=== PATIENT | male | born 1995 | race Caucasian/White ===

== ENCOUNTER 2021-11-28 12:44 | Emergency (ER) | payer OTHER, SELFPAY ==
[2021-11-28 13:12] VITALS: BP 129/87; PULSE 60; RESP 16; TEMP 35.6; O2SAT 100; BMI 21.5
[2021-11-28] MEDS: Ondansetron ODT 4 MG TAB.RAPDIS TRANSLINGU (13:18)
== END 2021-11-28 17:53 | disposition left against medical advice (07) ==
PROVIDERS: Emergency Provider Emergency Medicine
DX: R11.2 Nausea with vomiting, unspecified (principal); R10.9 Unspecified abdominal pain; F17.200 Nicotine dependence, unspecified, uncomplicated; F12.90 Cannabis use, unspecified, uncomplicated
CPT/HCPCS: 99282; 99283

== ENCOUNTER 2021-12-02 09:56 | Emergency (ER) | payer OTHER, SELFPAY ==
[2021-12-02 10:06] VITALS: BP 144/93; PULSE 64; RESP 18; TEMP 36.9; O2SAT 100; BMI 24.3
--- NOTE | 2021-12-02 10:32 | ED.NAVMDI ---
HPI - Nausea/Vomiting/Diarrhea General Chief complaint: Nausea/Vomiting/Diarrhea Stated complaint: vomiting blood Time Seen by Provider: 12/02/21 10:25 Source: patient Mode of arrival: ambulatory Limitations: no limitations History of Present Illness MD elicited complaint: nausea, vomiting and abdominal pain Pertinent past history: other (PUD) Onset (ago): day(s) (6) Description of vomiting: food contents, watery and coffee grounds Associated nausea: Yes Associated abdominal pain: Yes Location of pain: epigastric Pain consistency: constant Severity: severe Quality: stabbing Exacerbating factors: eating Relieving factors: none Context: marijuana use and other (drank ETOH - fireball prior to this happening next day started with vomiting, yesterday it became like coffee grounds) Associated symptoms: loss of appetite, nausea/vomiting and weakness Treatment prior to arrival: other (not on PPI) Related Data Previous Rx's Medication Instructions Recorded metoclopramide HCl 10 mg tablet 10 mg PO Q6H PRN #20 tab 12/02/21 (Reglan) omeprazole 20 mg capsule,delayed 20 mg PO BID #42 cap 12/02/21 release ondansetron 4 mg disintegrating 4 mg PO Q8H PRN #20 tab 12/02/21 tablet potassium chloride 20 mEq oral 20 meq PO DAILY 4 Days #4 ea 12/02/21 packet Allergies Allergy/AdvReac Type Severity Reaction Status Date / Time SEAFOOD Allergy Severe HIVES Uncoded 06/21/20 17:05 Review of Systems Review of Systems: Constitutional : No Weight loss, No Fever, No Chills ENT/Mouth : No sore throat, No Rhinorrhea Eyes: No Swelling, No Redness Cardiovascular : No Chest Pain, No SOB, NoEdema Respiratory : No Cough, No Sputum, No Wheezing Gastrointestinal : Positive Nausea, Positive Vomiting, positive Diarrhea, positive abdominal Pain, No Hematochezia, No Melena, pos hematemesis Genitourinary : No Dysuria, No Urinary Frequency, No Hematuria, No Urgency Musculoskeletal : No joint pain, No Myalgias, No Joint Swelling Skin : No Skin Lesions, No rash Neuro : pos Weakness, No Numbness, No Dizziness, No Headache Psych : No Anxiety/Panic, No Depression Heme/Lymph: No Bruising, No Lymphadenopathy Endocrine : No Polyuria, No Polydipsia All other systems reviewed and are negative. Gastrointestinal: Gastrointestinal: Reports nausea PMFSH Past Medical History Attestation statement: The following information was validated with the patient. Medical History Depression Stomach ulcer Social History Social History (Updated 12/02/21 @ 10:55 by Kelli Manriquez DO) Alcohol intake: current Patient Tobacco Use Status: Current everyday Tobacco user Substance Use Type: Marijuana Advance Directives: No Advance Directives Information Provided: No Physical Exam Vital Signs: Vital Signs: Last Vital Signs Temp 98.5 F 12/02/21 10:06 Pulse 52 12/02/21 10:55 Resp 14 12/02/21 10:55 BP 129/72 12/02/21 10:55 Pulse Ox 99 12/02/21 10:55 BMI result Body Mass Index 24.3 Appearance: Alert. Oriented X3. Mild acute distress. Active vomiting Eyes: Pupils equal, round and reactive to light. ENT: Pharynx normal. Neck: Normal inspection. Neck supple. CVS: Normal heart rate and rhythm. Pulses normal. Respiratory: No respiratory distress. Breath sounds normal. Abdomen: Soft and mild ttp in epigastric region no rebound Skin: Skin warm and dry. Normal skin color. Normal skin turgor. Extremities: No lower extremity edema. No calf ttp Neuro: Oriented X 3. No motor deficit. No sensory deficit. Course Course Course Narrative: h/h stable able to tolerate PO feels much better stable for DC MDM - Nausea/Vomiting/Diarrhea MDM Narrative Medical decision making narrative: 26 yo male with hx of PUD not on medications drank last week and since then c/o upper abdominal pain and vomiting yesterday developed brown emesis denies NSAID use at this time will need labs, IVF x 2L, IV protonix, anti-emetics. no RUQ or RLQ pain no WBC count no peritoneal signs doubt perforation dispo per results and findings as well as PO challenge Lab Data Result diagrams: 12/02/21 10:40 12/02/21 10:40 Labs: Lab Results 12/02/21 12/02/21 Range/Units 10:40 10:40 WBC 6.9 (4.8-10.8) X10*3/uL RBC 4.83 (4.60-5.80) X10*6/uL Hgb 14.5 (14.0-18.0) g/dl Hct 41.1 L (42.0-52.0) % MCV 85.1 (80.0-98.0) fL MCH 30.0 (27.0-33.0) pg MCHC 35.3 (31.0-36.0) g/dl RDW 12.1 (11.0-16.0) % Plt Count 170 (160-400) X10*3/uL MPV 11.2 (9.4-12.4) fL Immature Gran % (Auto) 0.3 (0.0-0.4) % Neut % (Auto) 83.4 H (45-73) % Lymph % (Auto) 10.8 L (20-40) % [place] % (Auto) 5.1 (2-11) % Eos % (Auto) 0.1 (0-4) % Baso % (Auto) 0.3 (0-2) % Lymph # (Auto) 0.7 L (1.2-4.9) X10*3/uL [place] # (Auto) 0.4 (0.1-1.2) X10*3/uL Eos # (Auto) 0.0 (0.0-0.4) X10*3/uL Baso # (Auto) 0.0 (0.0-0.2) X10*3/uL Abs Immat Gran (auto) 0.02 (0.00-0.03) X10*3/uL Absolute Neuts (auto) 5.7 (2.0-8.3) x10*3/uL Absolute Nucleated RBC 0.000 (0.0-0.012) X10*3/uL Nucleated RBC % (auto) 0.0 (0.0-0.2) /100WBC Sodium 138 (135-145) mmol/L Potassium 3.0 L (3.3-5.1) mmol/L Chloride 102 (96-108) mmol/L Carbon Dioxide 26 (22-29) mmol/L Anion Gap 13 (12-20) BUN 20 H (9-16) mg/dL Creatinine 1.18 (0.5-1.4) mg/dL Estim Creat Clear Calc 90.2 Estimated GFR > 60 Random Glucose 117 H (60-115) mg/dL Calcium 9.9 (8.4-10.2) mg/dL Magnesium 1.9 (1.6-2.6) mg/dL Total Bilirubin 1.0 (0.0-1.0) mg/dL Direct Bilirubin 0.4 (0.0-0.5) mg/dL AST 25 (5-37) U/L ALT 20 (0-40) U/L Alkaline Phosphatase 69 (39-117) U/L Total Protein 7.5 (6.5-8.0) g/dL Albumin 4.7 (3.5-5.0) g/dL Lipase 18 (8-78) U/L Critical Care Time Critical Care Time Critical Care Time: Yes Total Critical Care Time: 35 Attestation: 2L of IVF ordered, repletion of K with IV K, reassessment I attest to this time spent taking care of the patient Discharge Plan Discharge Clinical Impression: Acute hypokalemia Vomiting Qualifiers: Vomiting type: unspecified Nausea presence: with nausea Qualified Code(s): R11.2 - Nausea with vomiting, unspecified Gastritis Qualifiers: Gastritis type: unspecified gastritis Chronicity: acute Gastritis bleeding: with bleeding Qualified Code(s): K29.01 - Acute gastritis with bleeding Patient Disposition: Home, Self-Care Instructions: Gastritis (ED), Hypokalemia (ED), Acute Nausea and Vomiting (ED), Upper GI Series (DC) Additional Instructions: return to ED for any worsening symptoms or concerns NO MOTRIN, IBUPROFEN, ALEVE, NAPROSYN, TYLENOL IS OKAY TAKE ACID MEDICATION TWICE A DAY FOR 2 WEEKS THEN DAILY RETURN FOR ANY SYMPTOMS AVOID ALCOHOL FOR 2 WEEKS Prescriptions: New omeprazole 20 mg capsule,delayed release(DR/EC) 20 mg PO BID Qty: 42 1RF Rx Instructions: two weeks twice a day then daily afterwards ondansetron 4 mg tablet,disintegrating 4 mg PO Q8H PRN (Reason: nausea and vomiting) Qty: 20 0RF metoclopramide HCl [Reglan] 10 mg tablet 10 mg PO Q6H PRN (Reason: nausea and vomiting) Qty: 20 0RF potassium chloride 20 mEq packet 20 meq PO DAILY 4 Days Qty: 4 0RF Interventions: ED Discharge Assessment Last Done: 12/02/21 14:53 Discharge Date/Time: 12/02/21 14:53
[2021-12-02 10:43] LABS: MANUAL DIFF FLAG NO
[2021-12-02 10:46] LABS: Basophils Percent Auto 0.3 % (0-2); Eosinophils Percent Auto 0.1 % (0-4); Hematocrit 41.1 % (42.0-52.0); Hemoglobin 14.5 g/dl (14.0-18.0); Imm Gran Abs Auto 0.02 X10*3/uL (0.00-0.03); Imm Gran Pct Auto 0.3 % (0.0-0.4); Lymphocytes Absolute Auto 0.7 X10*3/uL (1.2-4.9); Lymphocytes Percent Auto 10.8 % (20-40); Mean Corpuscular HGB Conc 35.3 g/dl (31.0-36.0); Mean Corpuscular Volume 85.1 fL (80.0-98.0); Mean Platelet Volume 11.2 fL (9.4-12.4); Monocytes Absolute Auto 0.4 X10*3/uL (0.1-1.2); Monocytes Percent Auto 5.1 % (2-11); Neutrophils Absolute Auto 5.7 x10*3/uL (2.0-8.3); Neutrophils Percent Auto 83.4 % (45-73); Platelet Count 170 X10*3/uL (160-400); Red Blood Count 4.83 X10*6/uL (4.60-5.80); Red Cell Distribution Width 12.1 % (11.0-16.0); White Blood Count 6.9 X10*3/uL (4.8-10.8)
[2021-12-02] MEDS: 0.9 % Sodium Chloride 1,000 ML 999 ML IVCONT ×2 (10:53→11:00)
[2021-12-02] MEDS: Pantoprazole Sodium 40 MG/10 ML VIAL IVPUSH (10:54)
[2021-12-02] MEDS: Metoclopramide HCl 10 MG/2 ML VIAL IVPUSH (10:54)
[2021-12-02] MEDS: diphenhydrAMINE HCL 50 MG/ML VIAL 25 MG IVPUSH (10:54)
[2021-12-02] MEDS: LORazepam 2 MG/ML VIAL 1 MG IVPUSH (10:54)
[2021-12-02 10:55] VITALS: BP 129/72; PULSE 52; RESP 14; O2SAT 99
--- NOTE | 2021-12-02 11:00 | PC.NURSE ---
Pt received: Pt AOX4 and noted N/severe vomiting s/p using thc. NSR to sinus dodie noted and lungs clear. Pt abd soft and non-tender. IV established, medications admin, and vomiting decreased.
[2021-12-02 11:05] LABS: Alanine Aminotransferase 20 U/L (0-40); Albumin Level 4.7 g/dL (3.5-5.0); Alkaline Phosphatase 69 U/L (39-117); Anion Gap 13 (12-20); Aspartate Amino Transferase 25 U/L (5-37); Bilirubin Direct 0.4 mg/dL (0.0-0.5); Blood Urea Nitrogen 20 mg/dL (9-16); Calcium 9.9 mg/dL (8.4-10.2); Carbon Dioxide 26 mmol/L (22-29); Chloride 102 mmol/L (96-108); Creatinine Clr Calc Pharmacy 90.2; Estimated Glomerular Filt Rate > 60; Glucose Random 117 mg/dL (60-115); Lipase 18 U/L (8-78); Magnesium 1.9 mg/dL (1.6-2.6); Sodium 138 mmol/L (135-145); Total Protein 7.5 g/dL (6.5-8.0)
[2021-12-02] MEDS: Potassium Chloride/H20 10 MEQ/100 ML PIGGYBACK 100 MEQ IV ×2 (11:33→12:30)
== END 2021-12-02 14:53 | disposition home or self-care (01) ==
PROVIDERS: Emergency Provider Emergency Medicine
DX: K29.01 Acute gastritis with bleeding (principal); E87.6 Hypokalemia; R11.2 Nausea with vomiting, unspecified; F17.200 Nicotine dependence, unspecified, uncomplicated; F12.90 Cannabis use, unspecified, uncomplicated
CPT/HCPCS: 36415; 80048; 80076; 83690; 83735; 85025; 96361; 96365; 96366; 96375; 99283; 99291; J1200; J2060; J2765

== ENCOUNTER 2022-10-02 11:05 | Emergency (ER) | payer OTHER, SELFPAY ==
[2022-10-02 11:30] VITALS: BP 138/76; PULSE 58; RESP 18; TEMP 37.2; O2SAT 99; BMI 20.9
--- NOTE | 2022-10-02 11:30 | ED_ITS ---
HPI - General Adult General Chief complaint: General Medical Stated complaint: wants blood checked Time Seen by Provider: 10/02/22 11:33 Source: patient Mode of arrival: ambulatory Limitations: no limitations History of Present Illness HPI narrative: 27 yo male healthy here with complaints of seeking testing for STDs d/t unprotected sex. NO symptoms. Related Data Previous Rx's Medication Instructions Recorded metoclopramide HCl 10 mg tablet 10 mg PO Q6H PRN nausea and 12/02/21 (Reglan) vomiting #20 tabs omeprazole 20 mg capsule,delayed 20 mg PO BID #42 caps 12/02/21 release ondansetron 4 mg disintegrating 4 mg PO Q8H PRN nausea and 12/02/21 tablet vomiting #20 tabs potassium chloride 20 mEq oral 20 meq PO DAILY 4 days #4 ea 12/02/21 packet doxycycline monohydrate 100 mg 100 mg PO BID 10 days #20 tabs 10/04/22 tablet Allergies Allergy/AdvReac Type Severity Reaction Status Date / Time SEAFOOD Allergy Severe HIVES Uncoded 06/21/20 17:05 Review of Systems Review of Systems: Yes all other systems are reviewed and are negative Constitutional: Constitutional: Reports no additional constitutional complaints, Denies body ache(s), Denies chills, Denies fever(s), Denies headache(s) and Denies weakness Eyes: Eyes: Reports no additional eye complaints and Denies change in vision ENT: Reports system reviewed and no additional complaints, except as documented, Denies dizziness, Denies headache(s), Denies nasal congestion, Denies nasal discharge and Denies neck pain Cardiovascular: Cardiovascular: Reports no additional cardiovascular complaints, Denies chest pain, Denies leg edema and Denies dyspnea Respiratory: Respiratory: Reports no additional respiratory complaints, Denies cough and Denies dyspnea Gastrointestinal: Gastrointestinal: Reports no additional gastrointestinal complaints, Denies abdominal pain, Denies diarrhea, Denies nausea and Denies vomiting Genitourinary: Genitourinary: Denies urinary incontinence Musculoskeletal: Musculoskeletal: Reports no additional musculoskeletal comp laints, Denies back pain, Denies arthralgias, Denies joint swelling, Denies neck pain, Denies numbness and Denies tingling Integumentary/Breasts: Skin/Breast: Reports system reviewed and no additional complaints, except as docu and Denies rash Neurologic: Reports system reviewed and no additional complaints, except as documented, Denies dizziness, Denies headache(s), Denies numbness, Denies tingling and Denies weakness PMFSH Past Medical History Attestation statement: The following information was validated with the patient. Source: old records reviewed and nursing notes reviewed Medical History Depression Stomach ulcer Social History Social History Alcohol intake: current Patient Tobacco Use Status: Current everyday Tobacco user Substance Use Type: Marijuana Advance Directives: No Advance Directives Information Provided: Yes Physical Exam ED Vital Signs: Vital Signs - 24 hr 10/02/22 11:30 Temperature 99 F Pulse Rate 58 Respiratory Rate 18 Blood Pressure 138/76 Pulse Oximetry 99 Oxygen Delivery Method Room Air BMI result Body Mass Index 20.9 Const General: cooperative, healthy appearing, comfortable and no acute distress Orientation/consciousness: patient oriented x3 Limitations: no limitations HENMT Head: Yes normal to inspection Ears: hearing grossly normal bilaterally Eyes General: appearance normal, both eyes and all related structures Pupils: Equal, round and reactive pupils present Neck Neck: Yes normal visual inspection Chest Chest palpation & inspection: normal inspection of the chest Resp Effort & Inspection: normal respiratory effort Cardio Peripheral pulses: Peripheral pulses 2+ throughout GI Inspection: Yes normal to inspection Back/Spine/Pelvis Thoracic/Lumbar Spine: thoracic and lumbar spine normal to inspection Skin General skin exam: no rashes or lesions noted Neuro General: patient oriented x3 and moves all extremities Cranial nerves: Yes Equal, round and reactive pupils present Cognition (Neuro): normal cognition Gait exam (Neuro): Normal gait present Course Course Course Narrative: This is a rapid medical exam. Deferred HPI, ROS, PE to primary provider. 27 yo male healthy here with complaints of seeking testing for STDs d/t unprotected sex. NO symptoms. Will send testing for CT NG. VSS. Medical Decision Making Medical Decision Making MDM Narrative: 27 yo male healthy here seeking testing for gonorrhea/chlamydia with recent unprotected sex with no symptoms. Will send testing for gonorrhea/chlamydia. patient is aware we will contact him with results via phone. His updated information will be put in the computer. Differential Diagnosis Differential Diagnoses: The differential diagnosis associated with the presentation includes STI Lab Data Labs: Lab Results 10/02/22 Range/Units 11:48 Chlam trachomat DNA PCR DETECTED A (Not Detect.) N.gonorrhoeae DNA (PCR) NOT DETECTED (Not Detect.) Prescription Management As asymptomatic will wait for results prior to treatment. Patient is aware and agreeable with plan of care. Discharge Plan Discharge Clinical Impression: Concern about STD in male without diagnosis, Chlamydia Patient Disposition: Home, Self-Care Instructions: Sexually Transmitted Diseases (ED) Additional Instructions: We sent testing for gonorrhea and chlamydia. We will call you in 1-2 days if your results are positive. We do not notify you if you are negative. You may see your result in the portal. If you are positive you will need additional treatment. Abstain from unprotected sex until you know your results are Prescriptions: New doxycycline monohydrate 100 mg tablet 100 mg PO BID 10 Days Qty: 20 0RF No Action omeprazole 20 mg capsule,delayed release(DR/EC) 20 mg PO BID Qty: 42 1RF Rx Instructions: two weeks twice a day then daily afterwards ondansetron 4 mg tablet,disintegrating 4 mg PO Q8H PRN (Reason: nausea and vomiting) Qty: 20 0RF metoclopramide HCl [Reglan] 10 mg tablet 10 mg PO Q6H PRN (Reason: nausea and vomiting) Qty: 20 0RF potassium chloride 20 mEq packet 20 meq PO DAILY 4 Days Qty: 4 0RF Referrals: Physician,None [Primary Care Provider] - Interventions: ED Discharge Assessment Last Done: 10/02/22 12:00 Discharge Date/Time: 10/02/22 12:00
[2022-10-02 14:01] LABS: CT PCR DETECTED (Not Detect.); NG PCR NOT DETECTED (Not Detect.)
== END 2022-10-02 12:00 | disposition home or self-care (01) ==
PROVIDERS: Nurse Practitioner Family; Emergency Provider Student in an Organized Health Care Education/Training Program
DX: A56.8 Sexually transmitted chlamydial infection of other sites (principal); Z20.2 Contact with and (suspected) exposure to infections with a predominantly sexual mode of transmission; F17.200 Nicotine dependence, unspecified, uncomplicated; F12.90 Cannabis use, unspecified, uncomplicated
CPT/HCPCS: 87491; 87591; 99282; 99283

== ENCOUNTER 2023-03-10 23:00 | Emergency (ER) | payer MEDICAID, SELFPAY ==
[2023-03-10 23:19] VITALS: BP 114/90; PULSE 59; RESP 16; TEMP 37.1; O2SAT 99; BMI 21.9
[2023-03-11 00:06] LABS: Hematocrit 44.2 % (42.0-52.0); Hemoglobin 14.8 g/dl (14.0-18.0); Mean Corpuscular HGB Conc 33.5 g/dl (31.0-36.0); Mean Corpuscular Volume 89.5 fL (80.0-98.0); Mean Platelet Volume 10.4 fL (9.4-12.4); Platelet Count 170 X10*3/uL (160-400); Red Blood Count 4.94 X10*6/uL (4.60-5.80); Red Cell Distribution Width 12.7 % (11.0-16.0); White Blood Count 8.5 X10*3/uL (4.8-10.8)
[2023-03-11 00:25] LABS: Alanine Aminotransferase 23 U/L (0-40); Albumin Level 4.8 g/dL (3.5-5.0); Alkaline Phosphatase 79 U/L (39-117); Anion Gap 12 (12-20); Aspartate Amino Transferase 26 U/L (5-37); Bilirubin Total 0.5 mg/dL (0.0-1.0); Blood Urea Nitrogen 9 mg/dL (9-16); Calcium 10.1 mg/dL (8.4-10.2); Carbon Dioxide 26 mmol/L (22-29); Chloride 106 mmol/L (96-108); Estimated Glomerular Filt Rate > 60; Glucose Random 97 mg/dL (60-115); Lipase 20 U/L (8-78); Sodium 140 mmol/L (135-145); Total Protein 7.8 g/dL (6.5-8.0)
[2023-03-11 01:14] VITALS: BP 134/97; PULSE 77; RESP 19; TEMP 37.3; O2SAT 97
--- NOTE | 2023-03-11 01:21 | MHC.EDTECH ---
This Tech assumed care of this Pt upon arrival. Pt changed over into hospital gown, urine sample sent to labs for processing. VItal signs complete RN made aware of elevated BP
[2023-03-11 01:38] LABS: Appearance Urine Clear; Color Urine Yellow; Glucose Urine UA Negative (Negative); Leukocyte Esterase Urine Negative (Negative); Nitrite Urine Negative (Negative); Specific Gravity - Urine <= 1.005 (1.005-1.025); Urine Blood Negative (Negative); Urine Ketones Negative (Negative); Urine Protein Negative (Neg-Trace)
[2023-03-11 01:44] LABS: Bacteria Urine None Seen (None Seen); Hyaline Casts Urine 0-2 /LPF (0-2); RBC Urine 0-2 /HPF (0-2); Squamous Epithelial Cell Urine 0-2 /HPF (0-2); WBC Urine 0-5 /HPF (0-5)
--- NOTE | 2023-03-11 02:45 | PC.NURSE ---
Answered call to call system, Patient asked how long it will be till he sees the doctor. I informed patient that the doctor evaluates patients according to acuity of illness and that ambulance patients could possibly take priority and that I could not give an exact time. Patient then looked at visitor and stated that we'll leave at 3:15am if nobody comes in.
--- NOTE | 2023-03-11 04:44 | ED_ITS ---
HPI - Abdominal Pain General Chief Complaint: Abdominal Pain Stated Complaint: abd pain Time Seen by Provider: 03/11/23 04:35 Related Data Previous Rx's Medication Instructions Recorded metoclopramide HCl 10 mg tablet 10 mg PO Q6H PRN nausea and 12/02/21 (Reglan) vomiting #20 tabs omeprazole 20 mg capsule,delayed 20 mg PO BID #42 caps 12/02/21 release ondansetron 4 mg disintegrating 4 mg PO Q8H PRN nausea and 12/02/21 tablet vomiting #20 tabs potassium chloride 20 mEq oral 20 meq PO DAILY 4 days #4 ea 12/02/21 packet doxycycline monohydrate 100 mg 100 mg PO BID 10 days #20 tabs 10/04/22 tablet Allergies Allergy/AdvReac Type Severity Reaction Status Date / Time SEAFOOD Allergy Severe HIVES Uncoded 06/21/20 17:05 PMFSH Past Medical History Medical History Depression Stomach ulcer Social History Social History Alcohol intake: never Patient Tobacco Use Status: Current everyday Tobacco user Smoked in Last 30 Days: Yes Use of substances other than those prescribed or required for medical reasons: Yes Substance Use Type: Marijuana Advance Directives: No Advance Directives Information Provided: No Physical Exam ED Vital Signs: Vital Signs - 24 hr 03/10/23 23:19 03/11/23 01:14 03/11/23 04:48 Temperature 98.8 F 99.2 F Pulse Rate 59 77 Respiratory Rate 16 19 17 Blood Pressure 114/90 H 134/97 H Pulse Oximetry 99 97 Oxygen Delivery Method Room Air Room Air BMI result Body Mass Index 21.9 Medical Decision Making Medical Decision Making MDM Narrative: Patient eloped from the emergency department I actually never saw the patient. Lab Data 03/10/23 23:59 03/10/23 23:58 Labs: Lab Results 03/10/23 03/10/23 03/11/23 Range/Units 23:58 23:59 01:16 WBC 8.5 (4.8-10.8) X10*3/uL RBC 4.94 (4.60-5.80) X10*6/uL Hgb 14.8 (14.0-18.0) g/dl Hct 44.2 (42.0-52.0) % MCV 89.5 (80.0-98.0) fL MCH 30.0 (27.0-33.0) pg MCHC 33.5 (31.0-36.0) g/dl RDW 12.7 (11.0-16.0) % Plt Count 170 (160-400) X10*3/uL MPV 10.4 (9.4-12.4) fL Absolute Nucleated RBC 0.000 (0.0-0.012) X10*3/uL Nucleated RBC % (auto) 0.0 (0.0-0.2) /100WBC Sodium 140 (135-145) mmol/L Potassium 4.0 D (3.3-5.1) mmol/L Chloride 106 (96-108) mmol/L Carbon Dioxide 26 (22-29) mmol/L Anion Gap 12 (12-20) BUN 9 (9-16) mg/dL Creatinine 1.08 (0.5-1.4) mg/dL Estim Creat Clear Calc 93.0 Estimated GFR > 60 Random Glucose 97 (60-115) mg/dL Calcium 10.1 (8.4-10.2) mg/dL Total Bilirubin 0.5 (0.0-1.0) mg/dL AST 26 (5-37) U/L ALT 23 (0-40) U/L Alkaline Phosphatase 79 (39-117) U/L Total Protein 7.8 (6.5-8.0) g/dL Albumin 4.8 (3.5-5.0) g/dL Lipase 20 (8-78) U/L Urine Color Yellow Urine Appearance Clear Urine pH 7.0 (5.0-9.0) Ur Specific [place] <= 1.005 (1.005-1.025) Urine Protein Negative (Neg-Trace) mg/dL Urine Glucose (UA) Negative (Negative) mg/dL Urine Ketones Negative (Negative) mg/dL Urine Blood Negative (Negative) Urine Nitrite Negative (Negative) Ur Leukocyte Esterase Negative (Negative) Urine RBC 0-2 (0-2) /HPF Urine WBC 0-5 (0-5) /HPF Ur Squamous Epith Cells 0-2 (0-2) /HPF Urine Bacteria None Seen (None Seen) Hyaline Casts 0-2 (0-2) /LPF Discharge Plan Discharge Clinical Impression: Abdominal pain Patient Disposition: Elopement Prescriptions: No Action doxycycline monohydrate 100 mg tablet 100 mg PO BID 10 Days Qty: 20 0RF omeprazole 20 mg capsule,delayed release(DR/EC) 20 mg PO BID Qty: 42 1RF Rx Instructions: two weeks twice a day then daily afterwards ondansetron 4 mg tablet,disintegrating 4 mg PO Q8H PRN (Reason: nausea and vomiting) Qty: 20 0RF metoclopramide HCl [Reglan] 10 mg tablet 10 mg PO Q6H PRN (Reason: nausea and vomiting) Qty: 20 0RF potassium chloride 20 mEq packet 20 meq PO DAILY 4 Days Qty: 4 0RF Discharge Date/Time: 03/11/23 05:04
[2023-03-11 04:48] VITALS: RESP 17
== END 2023-03-11 05:04 | disposition left against medical advice (07) ==
PROVIDERS: Emergency Provider Emergency Medicine Emergency Medical Services
DX: R10.9 Unspecified abdominal pain (principal); Z53.21 Procedure and treatment not carried out due to patient leaving prior to being seen by health care provider
CPT/HCPCS: 36415; 80053; 81001; 83690; 85027; 99283; 99284

== ENCOUNTER 2023-10-17 15:36 | Emergency (ER) | payer MEDICAID, SELFPAY ==
--- NOTE | ~2023-10-17 | XR_ITS ---
EXAMINATION: XR ABDOMEN KUB CLINICAL INDICATION: Abdominal pain, constipation COMPARISON: None available. TECHNIQUE: AP view of the abdomen. FINDINGS: The bowel gas pattern is normal with no evidence of ileus or obstruction. Small colonic burden. No unusual soft tissue calcifications are noted. The bones are unremarkable. XR/XR KUB IMPRESSION: Nonobstructing bowel gas pattern. Small colonic stool burden.
[2023-10-17 17:27] VITALS: BP 130/80; PULSE 54; RESP 18; TEMP 36.7; O2SAT 98; BMI 23.6
--- NOTE | 2023-10-17 17:28 | ED_ITS ---
HPI - General Adult General Chief complaint: Abdominal Pain Stated complaint: Ulcer/constipation Related Data Previous Rx's Medication Instructions Recorded metoclopramide HCl 10 mg tablet 10 mg PO Q6H PRN nausea and 12/02/21 (Reglan) vomiting #20 tabs omeprazole 20 mg capsule,delayed 20 mg PO BID #42 caps 12/02/21 release ondansetron 4 mg disintegrating 4 mg PO Q8H PRN nausea and 12/02/21 tablet vomiting #20 tabs potassium chloride 20 mEq oral 20 meq PO DAILY 4 days #4 ea 12/02/21 packet doxycycline monohydrate 100 mg 100 mg PO BID 10 days #20 tabs 10/04/22 tablet Allergies Allergy/AdvReac Type Severity Reaction Status Date / Time SEAFOOD Allergy Severe HIVES Uncoded 06/21/20 17:05 [facility] Past Medical History Onset Date is defined in the Problem List Problems that require an onset date and time if occurred within 24 hrs of arrival to the ED Aortic Dissection and Rupture; Neurologic impairment; Cardiopulmonary Arrest; Endotracheal Intubation; Insertion or Replacement of Mechanical Circulatory Assist Device Medical History Depression Stomach ulcer Social History Social History Alcohol intake: never Patient Tobacco Use Status: Current everyday Tobacco user Substance Use Type: Marijuana Advance Directives: No Advance Directives Information Provided: No Physical Exam ED Vital Signs: BMI result Body Mass Index 23.6 Course Course Course Narrative: This is an RME: Additional HPI, ROS, PE not included below will be deferred to primary provider. This is a 67-rhqg-wcp-male, with a hx of bleeding ulcer 15 years ago, presenting to the ER with complaints of abdominal pain, constipation, and subjective fevers and chills. Abdomen is soft with diffuse pain throughout entire abdomen. Plan: Labs, UA, KUB Reevaluation(s) Reevaluation #1: Patient left without completing treatment Medical Decision Making Lab Data 10/17/23 17:45 10/17/23 17:45 Labs: Lab Results 10/17/23 Range/Units 17:45 WBC 5.0 (4.8-10.8) X10*3/uL RBC 4.65 (4.60-5.80) X10*6/uL Hgb 13.9 L (14.0-18.0) g/dl Hct 41.7 L (42.0-52.0) % MCV 89.7 (80.0-98.0) fL MCH 29.9 (27.0-33.0) pg MCHC 33.3 (31.0-36.0) g/dl RDW 12.8 (11.0-16.0) % Plt Count 154 L (160-400) X10*3/uL MPV 11.7 (9.4-12.4) fL Immature Gran % (Auto) 0.2 (0.0-0.4) % Neut % (Auto) 63.7 (45-73) % Lymph % (Auto) 26.4 (20-40) % [place] % (Auto) 7.9 (2-11) % Eos % (Auto) 1.2 (0-4) % Baso % (Auto) 0.6 (0-2) % Lymph # (Auto) 1.3 (1.2-4.9) X10*3/uL [place] # (Auto) 0.4 (0.1-1.2) X10*3/uL Eos # (Auto) 0.1 (0.0-0.4) X10*3/uL Baso # (Auto) 0.0 (0.0-0.2) X10*3/uL Abs Immat Gran (auto) 0.01 (0.00-0.03) X10*3/uL Absolute Neuts (auto) 3.2 (2.0-8.3) x10*3/uL Absolute Nucleated RBC 0.000 (0.0-0.012) X10*3/uL Nucleated RBC % (auto) 0.0 (0.0-0.2) /100WBC Sodium 144 (135-145) mmol/L Potassium 4.1 (3.3-5.1) mmol/L Chloride 107 (96-108) mmol/L Carbon Dioxide 28 (22-29) mmol/L Anion Gap 13 (12-20) BUN 16 (9-16) mg/dL Creatinine 1.33 (0.5-1.4) mg/dL Estim Creat Clear Calc 84.1 Estimated GFR > 60 Random Glucose 95 (60-115) mg/dL Calcium 9.7 (8.4-10.2) mg/dL Total Bilirubin 0.5 (0.0-1.0) mg/dL AST 22 (5-37) U/L ALT 18 (0-40) U/L Alkaline Phosphatase 74 (39-117) U/L Total Protein 7.6 (6.5-8.0) g/dL Albumin 4.6 (3.5-5.0) g/dL Lipase 9 (8-78) U/L Discharge Plan Discharge Clinical Impression: Abdominal pain Patient Disposition: Left W/O Completing Treatment Prescriptions: No Action doxycycline monohydrate 100 mg tablet 100 mg PO BID 10 Days Qty: 20 0RF omeprazole 20 mg capsule,delayed release(DR/EC) 20 mg PO BID Qty: 42 1RF Rx Instructions: two weeks twice a day then daily afterwards ondansetron 4 mg tablet,disintegrating 4 mg PO Q8H PRN (Reason: nausea and vomiting) Qty: 20 0RF metoclopramide HCl [Reglan] 10 mg tablet 10 mg PO Q6H PRN (Reason: nausea and vomiting) Qty: 20 0RF potassium chloride 20 mEq packet 20 meq PO DAILY 4 Days Qty: 4 0RF Discharge Date/Time: 10/17/23 22:16
[2023-10-17 17:48] LABS: MANUAL DIFF FLAG NO
[2023-10-17 17:53] LABS: Basophils Percent Auto 0.6 % (0-2); Eosinophils Absolute Auto 0.1 X10*3/uL (0.0-0.4); Eosinophils Percent Auto 1.2 % (0-4); Hematocrit 41.7 % (42.0-52.0); Hemoglobin 13.9 g/dl (14.0-18.0); Imm Gran Abs Auto 0.01 X10*3/uL (0.00-0.03); Imm Gran Pct Auto 0.2 % (0.0-0.4); Lymphocytes Absolute Auto 1.3 X10*3/uL (1.2-4.9); Lymphocytes Percent Auto 26.4 % (20-40); Mean Corpuscular HGB Conc 33.3 g/dl (31.0-36.0); Mean Corpuscular Hemoglobin 29.9 pg (27.0-33.0); Mean Corpuscular Volume 89.7 fL (80.0-98.0); Mean Platelet Volume 11.7 fL (9.4-12.4); Monocytes Absolute Auto 0.4 X10*3/uL (0.1-1.2); Monocytes Percent Auto 7.9 % (2-11); Neutrophils Absolute Auto 3.2 x10*3/uL (2.0-8.3); Neutrophils Percent Auto 63.7 % (45-73); Platelet Count 154 X10*3/uL (160-400); Red Blood Count 4.65 X10*6/uL (4.60-5.80); Red Cell Distribution Width 12.8 % (11.0-16.0)
[2023-10-17 18:05] LABS: Alanine Aminotransferase 18 U/L (0-40); Albumin Level 4.6 g/dL (3.5-5.0); Alkaline Phosphatase 74 U/L (39-117); Anion Gap 13 (12-20); Aspartate Amino Transferase 22 U/L (5-37); Bilirubin Total 0.5 mg/dL (0.0-1.0); Blood Urea Nitrogen 16 mg/dL (9-16); Calcium 9.7 mg/dL (8.4-10.2); Carbon Dioxide 28 mmol/L (22-29); Chloride 107 mmol/L (96-108); Creatinine Clr Calc Pharmacy 84.1; Estimated Glomerular Filt Rate > 60; Glucose Random 95 mg/dL (60-115); Lipase 9 U/L (8-78); Potassium 4.1 mmol/L (3.3-5.1); Sodium 144 mmol/L (135-145); Total Protein 7.6 g/dL (6.5-8.0)
--- NOTE | 2023-10-17 22:16 | PC.NURSE ---
Pt not visualizd in ED WR when called
== END 2023-10-17 22:16 | disposition left against medical advice (07) ==
PROVIDERS: Physician Assistant Medical; Emergency Provider Emergency Medicine
DX: R10.9 Unspecified abdominal pain (principal); F17.210 Nicotine dependence, cigarettes, uncomplicated; F12.90 Cannabis use, unspecified, uncomplicated
CPT/HCPCS: 36415; 74018; 80053; 83690; 85025; 99281; 99283

== ENCOUNTER 2024-06-23 14:08 | Emergency (ER) | payer SELFPAY ==
--- NOTE | 2024-06-23 14:18 | ED_ITS ---
HPI - General Adult General Chief complaint: Upper Respiratory Symptoms Stated complaint: covid test Time Seen by Provider: 06/23/24 14:18 Source: patient Mode of arrival: ambulatory Limitations: no limitations History of Present Illness ED Provider: Javed Crandall PA-C HPI narrative: 29 yo male presents to the ER for a COVID test to return to work. He states he was sick on Thursday and it was positive. He had sinus pressure, dry mouth, stuffy nose, headaches. He was feeling better overall but started feeling woozy and vomited today. He was supposed to return to work but had to call out. He was told if he didn't have a note he was going to get fired. denies abdominal pain, ongoing nausea, vomiting or diarrhea. no fevers or cough. MD complaint: covid testing Onset (ago): day(s) Relieving factors: none Exacerbating factors: none Associated symptoms: denies other symptoms Related Data Previous Rx's ?Medication ?Instructions ?Recorded metoclopramide HCl 10 mg tablet 10 mg PO Q6H PRN nausea and 12/02/21 (Reglan) vomiting #20 tabs omeprazole 20 mg capsule,delayed 20 mg PO BID #42 caps 12/02/21 release ondansetron 4 mg disintegrating 4 mg PO Q8H PRN nausea and 12/02/21 tablet vomiting #20 tabs potassium chloride 20 mEq oral 20 meq PO DAILY 4 days #4 ea 12/02/21 packet doxycycline monohydrate 100 mg 100 mg PO BID 10 days #20 tabs 10/04/22 tablet Allergies Allergy/AdvReac Type Severity Reaction Status Date / Time SEAFOOD Allergy Severe HIVES Uncoded 06/23/24 14:21 Review of Systems Review of Systems: Yes all other systems are reviewed and are negative PMF Past Medical History Medical History Depression Stomach ulcer Social History Social History Alcohol intake: never Patient Tobacco Use Status: Current everyday Tobacco user Substance Use Type: Marijuana Advance Directives: No Advance Directives Information Provided: No Do you have a plan to hurt others: No Plan Physical Exam ED Vital Signs: Vital Signs - 24 hr 06/23/24 14:19 Temperature 98.6 F Pulse Rate 82 Respiratory Rate 16 Blood Pressure 110/69 Pulse Oximetry 98 Oxygen Delivery Method Room Air BMI result Body Mass Index 22.1 Appearance: Alert. Oriented X3. No acute distress. Head: normocephalic, atraumatic. Eyes: Pupils equal, round and reactive to light. ENT: Pharynx normal. No tonsillar swelling or exudate. Neck: Normal inspection. Neck supple. CVS: Normal heart rate and rhythm. Pulses normal. Respiratory: No respiratory distress. Breath sounds normal. Abdomen: Soft and nontender. +BS x4 Skin: Skin warm and dry. Normal skin color. Normal skin turgor. No rashes. Extremities: No lower extremity edema. No joint swelling. Neuro/psych: Oriented X 3. grossly normal. Normal speech and cognition. Medical Decision Making Medical Decision Making [facility] Narrative: 29 yo male with recently dx covid presenting for a covid test to return to work. endorses n/v this morning but no abd pain. has since tolerated po. no abd tenderness on exam and he appears well. vss. covid negative. given vomiting this morning he should not go to work today. if improved tomorrow he can return, mask advised. stable for d/c. return precautions discussed. Differential Diagnosis Differential Diagnoses: The differential diagnosis associated with the presentation includes covid, flu, gastroenteritis Lab Data [facility] Lab Attestation statement: I reviewed the patient's lab results. Labs: Lab Results 06/23/24 Range/Units 15:25 COVID-19 (KARLEE) Negative (Negative) COVID-19 Clin Com See Note Prescription Management I considered prescription management with: Other (antiemetic) Discharge Plan Discharge Clinical Impression: COVID-19 Patient Disposition: Home, Self-Care Instructions: COVID-19 (Coronavirus Disease 2019) (ED) Additional Instructions: you tested NEGATIVE for COVID today given you vomited today, recommend you do NOT go to work today if you feel better tomorrow, you can return to work tomorrow rest and drink plenty of fluids. If you develop new or worsening symptoms call 911 or come back to the ER for further evaluation. Prescriptions: No Action doxycycline monohydrate 100 mg tablet 100 mg PO BID 10 Days Qty: 20 0RF omeprazole 20 mg capsule,delayed release(DR/EC) 20 mg PO BID Qty: 42 1RF Rx Instructions: two weeks twice a day then daily afterwards ondansetron 4 mg tablet,disintegrating 4 mg PO Q8H PRN (Reason: nausea and vomiting) Qty: 20 0RF metoclopramide HCl [Reglan] 10 mg tablet 10 mg PO Q6H PRN (Reason: nausea and vomiting) Qty: 20 0RF potassium chloride 20 mEq packet 20 meq PO DAILY 4 Days Qty: 4 0RF Stand Alone Forms: Work/School Release Discharge Date/Time: 06/23/24 16:24 Print Language: Sinhala
[2024-06-23 14:19] VITALS: BP 110/69; PULSE 82; RESP 16; TEMP 37; O2SAT 98; BMI 22.1
[2024-06-23 15:45] LABS: COVID-19 Test Negative (Negative); IDNOW Serial# 08D9AD1C
== END 2024-06-23 16:24 | disposition home or self-care (01) ==
PROVIDERS: Physician Assistant; Emergency Provider Emergency Medicine
DX: U07.1 COVID-19 (principal); R11.2 Nausea with vomiting, unspecified
CPT/HCPCS: 87635; 99281; 99283

== ENCOUNTER 2024-06-30 16:43 | Emergency (ER) | payer SELFPAY ==
[2024-06-30 17:49] VITALS: BP 125/79; PULSE 69; RESP 14; TEMP 37.1; O2SAT 99; BMI 21.5
--- NOTE | 2024-06-30 17:55 | ED_ITS ---
HPI - General Adult General Chief complaint: General Medical Stated complaint: covid test-needs to be cleared to return to work Time Seen by Provider: 06/30/24 18:06 Source: patient Mode of arrival: ambulatory Limitations: no limitations History of Present Illness ED Provider: Ben Foreman PA-C HPI narrative: 29 yold male healthy presents to the ED for covid test. patient states employer wants him to get tested for covid before coming back to work. patient asymptomatic. Related Data Previous Rx's ?Medication ?Instructions ?Recorded metoclopramide HCl 10 mg tablet 10 mg PO Q6H PRN nausea and 12/02/21 (Reglan) vomiting #20 tabs omeprazole 20 mg capsule,delayed 20 mg PO BID #42 caps 12/02/21 release ondansetron 4 mg disintegrating 4 mg PO Q8H PRN nausea and 12/02/21 tablet vomiting #20 tabs potassium chloride 20 mEq oral 20 meq PO DAILY 4 days #4 ea 12/02/21 packet doxycycline monohydrate 100 mg 100 mg PO BID 10 days #20 tabs 10/04/22 tablet Allergies Allergy/AdvReac Type Severity Reaction Status Date / Time SEAFOOD Allergy Severe HIVES Uncoded 06/30/24 17:53 Review of Systems Review of Systems: asymptomatic Yes all other systems are reviewed and are negative PMFSH Past Medical History Medical History Depression Stomach ulcer Social History Social History Alcohol intake: never Patient Tobacco Use Status: Current everyday Tobacco user Substance Use Type: Marijuana Advance Directives: No Advance Directives Information Provided: No Do you have a plan to hurt others: No Plan Physical Exam ED Vital Signs: Vital Signs - 24 hr 06/30/24 17:49 06/30/24 19:37 06/30/24 19:42 Temperature 98.7 F 98.5 F 98.6 F Pulse Rate 69 65 66 Respiratory Rate 14 14 16 Blood Pressure 125/79 120/65 122/66 Pulse Oximetry 99 98 98 Oxygen Delivery Method Room Air Room Air Room Air BMI result Body Mass Index 21.5 Const General: cooperative, healthy appearing, comfortable, no acute distress, well developed, alert, awake and Physically active Orientation/consciousness: oriented to person, oriented to place, oriented to time and patient oriented x3 HENOH Head: Yes normal to inspection, Yes No palpable skull fracture present, Yes normocephalic and Yes atraumatic Ears: hearing grossly normal bilaterally, external ears normal, TM's normal bilaterally, TM normal on the right, TM normal on the left, EAC's normal, mastoids normal and no periauricular adenopathy Throat: Yes posterior oropharynx normal, Yes tonsils normal and Yes uvula midline Eyes General: appearance normal, both eyes and all related structures Neck Neck: Yes normal visual inspection, Yes full ROM, Yes no lymphadenopathy, Yes no meningeal signs, Yes trachea midline, Yes supple, No anterior neck swelling and No tender Chest Chest palpation & inspection: normal inspection of the chest and normal palpation of entire chest wall Resp Effort & Inspection: normal respiratory effort and able to speak in complete sentences Auscultation: clear to auscultation bilaterally Cardio Jugular venous distension: no JVD Heart sounds: S1 normal heart sound present and S2 normal heart sound present GI Inspection: Yes normal to inspection Palpation (GI): Soft to palpation, not firm, nontender, no guarding and not rigid General: Yes no CVA tenderness Back/Spine/Pelvis Back: no CVA tenderness and No back tenderness Skin General skin exam: no rashes or lesions noted, elasticity normal and turgor normal Neuro General: oriented to person, oriented to place, oriented to time, patient oriented x3, gait normal, tone normal and no meningeal signs Extrem General: Yes normal to inspection, Yes full ROM and Yes capillary refill normal Psych Appearance: grossly normal, well kempt and not disheveled Course Course Course Narrative: RME: done by MAXIMO Foreman. 29-year-old male presents to ED needing COVID test. Patient informed his job he had COVID although only his kids had it. Patient's job since he will have to get a COVID test that is negative before he returns to work. Patient asymptomatic. COVID swab ordered. Medical Decision Making Medical Decision Making [facility] Narrative: 29-year-old male asymptomatic requesting COVID test. Patient needs COVID test has proved negative. Return to work. not suspecting covid, pneumonia, myocaridi ts, gastroenteritis, or any other life threatening etioliges Differential Diagnosis Differential Diagnoses: The differential diagnosis associated with the presentation includes (covid, influenza, RSV) Admission/Observation Consideration of admission/observation: Escalation of care including admission/observation considered Lab Data MDM Lab Attestation statement: I reviewed the patient's lab results. Labs: Lab Results 06/30/24 Range/Units 18:05 Influenza Type A (PCR) NEGATIVE (Negative) Influenza Type B (PCR) NEGATIVE (Negative) RSV RNA Qual (PCR) NEGATIVE (Negative) SARS-CoV-2 RNA (RT-PCR) NEGATIVE (Negative) Independent Historian Clinical information obtained from an independent historian. History obtained from or confirmed by: Other ([facility]) External Record Review External record reviewed: Other (Prior visits.) Discharge Plan Discharge Clinical Impression: Normal exam Patient Disposition: Home, Self-Care Instructions: Normal Exam (ED) Additional Instructions: You came back negative for COVID, influenza, and RSV. Return to the ED for any complaints or any other concerning symptoms. Recommend follow-up with primary care provider if needed Prescriptions: No Action doxycycline monohydrate 100 mg tablet 100 mg PO BID 10 Days Qty: 20 0RF omeprazole 20 mg capsule,delayed release(DR/EC) 20 mg PO BID Qty: 42 1RF Rx Instructions: two weeks twice a day then daily afterwards ondansetron 4 mg tablet,disintegrating 4 mg PO Q8H PRN (Reason: nausea and vomiting) Qty: 20 0RF metoclopramide HCl [Reglan] 10 mg tablet 10 mg PO Q6H PRN (Reason: nausea and vomiting) Qty: 20 0RF potassium chloride 20 mEq packet 20 meq PO DAILY 4 Days Qty: 4 0RF Stand Alone Forms: Work/School Release Interventions: ED Discharge Assessment Last Done: 06/30/24 19:42 Discharge Date/Time: 06/30/24 19:43 Print Language: Mohawk
[2024-06-30 19:09] LABS: Influenza A PCR NEGATIVE (Negative); Influenza B PCR NEGATIVE (Negative); Resp Syncy Virus RNA Qual PCR NEGATIVE (Negative); SARS COV2 PCR INHOUSE NEGATIVE (Negative)
[2024-06-30 19:37] VITALS: BP 120/65; PULSE 65; RESP 14; TEMP 36.9; O2SAT 98
[2024-06-30 19:42] VITALS: BP 122/66; PULSE 66; RESP 16; TEMP 37; O2SAT 98
== END 2024-06-30 19:43 | disposition home or self-care (01) ==
PROVIDERS: Physician Assistant; Emergency Provider Internal Medicine
DX: Z03.818 Encounter for observation for suspected exposure to other biological agents ruled out (principal); F17.210 Nicotine dependence, cigarettes, uncomplicated; F12.90 Cannabis use, unspecified, uncomplicated
CPT/HCPCS: 0241U; 99283

== ENCOUNTER 2025-02-06 17:45 | Emergency (ER) | payer OTHER, SELFPAY ==
--- NOTE | ~2025-02-06 | XR_ITS ---
CLINICAL HISTORY: back pain 3 views lumbar spine Comparison: None Findings: Normal alignment. No acute fractures or dislocation. No significant degenerative change. IMPRESSION: No acute findings. This document has been electronically signed by: Shavonne Moran MD on 02/06/2025 19:28:15
--- NOTE | ~2025-02-06 | XR_ITS ---
CLINICAL HISTORY: back pain 3 views sacrum and coccyx Comparison: None Findings No acute fractures. No significant degenerative change. No erosions. IMPRESSION: No acute findings This document has been electronically signed by: Shavonne Moran MD on 02/06/2025 19:28:21
[2025-02-06 18:13] VITALS: BP 128/87; PULSE 116; RESP 19; TEMP 36.6; O2SAT 98; BMI 22.2
--- NOTE | 2025-02-06 18:18 | ED.GENADULT ---
HPI - General Adult General Chief complaint: Back Pain/Injury Stated complaint: lower back pain History of Present Illness HPI narrative: Patient left before completion of treatment by ED provider. Related Data Previous Rx's ?Medication ?Instructions ?Recorded metoclopramide HCl 10 mg tablet 10 mg PO Q6H PRN nausea and 12/02/21 (Reglan) vomiting #20 tabs omeprazole 20 mg capsule,delayed 20 mg PO BID #42 caps 12/02/21 release ondansetron 4 mg disintegrating 4 mg PO Q8H PRN nausea and 12/02/21 tablet vomiting #20 tabs potassium chloride 20 mEq oral 20 meq PO DAILY 4 days #4 ea 12/02/21 packet doxycycline monohydrate 100 mg 100 mg PO BID 10 days #20 tabs 10/04/22 tablet Allergies Allergy/AdvReac Type Severity Reaction Status Date / Time SEAFOOD Allergy Severe HIVES Uncoded 02/06/25 18:14 [facility] Past Medical History Medical History Depression Stomach ulcer Social History Social History Alcohol intake: never Patient Tobacco Use Status: Current everyday Tobacco user Substance Use Type: Marijuana Advance Directives: No Advance Directives Information Provided: Yes Do you have a plan to hurt others: No Plan Physical Exam ED Vital Signs: Vital Signs - 24 hr 02/06/25 18:13 Temperature 98 F Pulse Rate 116 H Respiratory Rate 19 Blood Pressure 128/87 Pulse Oximetry 98 Oxygen Delivery Method Room Air BMI result Body Mass Index 22.2 Course Course Course Narrative: RME: 30-year-old male presents to ED for low back pain for the past 4 days. 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 Patient denies any trauma or urinary/bowel incontinence. Positive for lumbar spine tenderness. X-ray ordered Discharge Plan Discharge Clinical Impression: Back pain Patient Disposition: Left W/O Completing Treatment Prescriptions: No Action doxycycline monohydrate 100 mg tablet 100 mg PO BID 10 Days Qty: 20 0RF omeprazole 20 mg capsule,delayed release(DR/EC) 20 mg PO BID Qty: 42 1RF Rx Instructions: two weeks twice a day then daily afterwards ondansetron 4 mg tablet,disintegrating 4 mg PO Q8H PRN (Reason: nausea and vomiting) Qty: 20 0RF metoclopramide HCl [Reglan] 10 mg tablet 10 mg PO Q6H PRN (Reason: nausea and vomiting) Qty: 20 0RF potassium chloride 20 mEq packet 20 meq PO DAILY 4 Days Qty: 4 0RF Discharge Date/Time: 02/06/25 23:22
== END 2025-02-06 23:22 | disposition left against medical advice (07) ==
PROVIDERS: Emergency Provider Emergency Medicine
DX: M54.9 Dorsalgia, unspecified (principal)
CPT/HCPCS: 72100; 72220; 99281; 99283

== ENCOUNTER → 2025-02-06 18:17 | Outpatient (BNV) | payer MEDICAID, SELFPAY | PROVIDERS: Visit Provider Student in an Organized Health Care Education/Training Program | DX: M54.50 Low back pain, unspecified (principal) | CPT/HCPCS: 72100; 72220 ==

== ENCOUNTER 2025-02-07 08:10 | Emergency (ER) | payer OTHER, SELFPAY ==
[2025-02-07 08:18] VITALS: BP 118/82; PULSE 89; RESP 20; TEMP 36.8; O2SAT 98; BMI 21.7
--- OUTSIDE RECORDS SUMMARY | 2025-02-07 12:59 | XMS_ITS | Clinical Summary ---
Author Organization [facility] Address [address] [place] [address] Care Team Providers Care Foundation Assistant Name Role Phone Unavailable Primary Care Provider Unavailabl e Encounters Date Type Department Care Team Description 01/04/2025 Population Health Risk Score [facility] Care [facility] ([facility]) Department [address] [place] [id number] Provider, Population Health Generic from Last 3 Months Social History Tobacco Use Types Packs/Day Years Used Date Smoking Tobacco: Never Assessed Sex and Gender Information Value Date Recorded Sex Assigned at Male 08/04/2022 10:18 AM EDT Legal Sex Male 10:18 AM EDT Gender Identity Not on file Sexual Orientation Not on file Plan of Treatment Health Maintenance Due Date Last Done Comments Depression Screening 1997 HIV Screening 1997 SDOH Screening 1997 Alcohol/Substance Use Screening 2009 Tobacco Screening 2009 Family Planning (PISQ) 01/02/2012 Hepatitis C Screening 2015 DTaP/Tdap/Td Vaccines (1 - Tdap) 01/02/2016 Hepatitis B Vaccines (1 of 3 - 19+ 3-dose series) 01/02/2016 COVID-19 Vaccine (1 - 2023-2 5 season) 2024 Influenza Vaccine (#1) 2024 Zoster Vaccines (1 of 2) 2047 RSV Patients and Pa tients Aged 60 years or older (1 - 1-dose 75+ series) 01/02/2072 HIB Vaccines Aged Out No longer eligi ble based on patient's age to complete this topic HPV Vaccines Aged Out No longer eligi ble based on patient's age to complete this topic Hepatitis A Vaccines Aged Out No long er eligible based on patient's age to complete this topic IPV Vaccines Aged Out No longer eligi ble based on patient's age to complete this topic Meningococcal Vaccine Aged Out No deshawn jerod eligible based on patient's age to complete this topic Pneumococcal Vaccine: Pediat rics (0 to 5 Years) and At-Risk Patients (6 to 49) Years) Aged Out No longer eligible b ased on patient's age to complete this topic RSV under 20 months Aged Out No longe r eligible based on patient's age to complete this topic Rotavirus Vaccines Aged Out No longer eligible based on patient's age to complete this topic Insurance [facility] C3
== END 2025-02-07 11:16 | disposition left against medical advice (07) ==
PROVIDERS: Emergency Provider Emergency Medicine
DX: Z04.2 Encounter for examination and observation following work accident (principal); Z02.79 Encounter for issue of other medical certificate; M54.50 Low back pain, unspecified; Z53.21 Procedure and treatment not carried out due to patient leaving prior to being seen by health care provider
CPT/HCPCS: 99281

== ENCOUNTER 2025-02-09 14:40 | Emergency (ER) | payer OTHER, SELFPAY ==
[2025-02-09 14:45] VITALS: BP 121/77; PULSE 96; RESP 16; TEMP 36.6; O2SAT 98; BMI 22.5
--- NOTE | 2025-02-09 14:45 | ED_ITS ---
HPI - General Adult General Stated complaint: Work injury History of Present Illness ED Provider: Umu HPI narrative: 30 yo male without significant PMhx presents to the ED due to work injury. He states he came to the ED on 02/06 after a back injury at work and is requesting a note to return to work. Patient was seen by triage provider on 02/06 had imaging ordered but left department due to wait time. He states pain has resolved and needs a note to return to work. complaint: medical clearance Onset (ago): day(s) Location: back Related Data Previous Rx's ?Medication ?Instructions ?Recorded metoclopramide HCl 10 mg tablet 10 mg PO Q6H PRN nausea and 12/02/21 (Reglan) vomiting #20 tabs omeprazole 20 mg capsule,delayed 20 mg PO BID #42 caps 12/02/21 release ondansetron 4 mg disintegrating 4 mg PO Q8H PRN nausea and 12/02/21 tablet vomiting #20 tabs potassium chloride 20 mEq oral 20 meq PO DAILY 4 days #4 ea 12/02/21 packet doxycycline monohydrate 100 mg 100 mg PO BID 10 days #20 tabs 10/04/22 tablet Allergies Allergy/AdvReac Type Severity Reaction Status Date / Time SEAFOOD Allergy Severe HIVES Uncoded 02/09/25 14:48 Review of Systems Review of Systems: as per HPI Yes all other systems are reviewed and are negative PMFSH Past Medical History Medical History Stomach ulcer Depression Social History Social History Alcohol intake: never Patient Tobacco Use Status: Current everyday Tobacco user Substance Use Type: Marijuana Physical Exam ED Vital Signs: Vital signs have been reviewed and appear to be correct. Blood pressure normal. Heart rate normal. Respiratory rate normal. Temperature normal. Oxygen saturation normal. Const General: cooperative, healthy appearing and no acute distress Orientation/consciousness: oriented to person, oriented to place, oriented to time and patient oriented x3 Limitations: no limitations HENMT Head: Yes normocephalic and Yes atraumatic Ears: external ears normal General nose exam: Normal external nose present Face and sinus: Yes face symmetric Mouth: oropharynx normal and moist mucous membranes Throat: Yes uvula midline Eyes Pupils: Equal, round and reactive pupils present Neck Neck: Yes normal visual inspection and Yes supple Resp Effort & Inspection: normal respiratory effort and able to speak in complete sentences Auscultation: clear to auscultation bilaterally Cardio Rate: regular rate Rhythm: regular rhythm Heart sounds: S1 normal heart sound present and S2 normal heart sound present GI Palpation (GI): Soft to palpation and nontender Auscultation: normoactive bowel sounds General: Yes no CVA tenderness Back/Spine/Pelvis Back: no CVA tenderness Skin General skin exam: elasticity normal and turgor normal Neuro General: oriented to person, oriented to place, oriented to time, patient oriented x3, gait normal, tone normal, moves all extremities, no focal motor deficits, CN's II-XI intact bilaterally and deep tendon reflexes 2+ bilaterally Cranial nerves: Yes Equal, round and reactive pupils present Cognition (Neuro): normal cognition Extrem General: Yes full ROM, Yes no pedal edema and Yes no calf tenderness Psych Mental Status: mental status grossly normal Affect: normal affect Thought process: Normal thought process present Course Course Course Narrative: This is a rapid medical exam performed by Veronica Sanz NP: Additional HPI, ROS, PE not included below will be deferred to primary provider. 30 yo male without significant PMHx presents to the ED due to work injury. He reports he has been to t PE: Plan: Medical Decision Making Medical Decision Making [place] Narrative: 30 yo male without significant PMhx presents to the ED due to work injury. He states he came to the ED on 02/06 after a back injury at work and is requesting a note to return to work. Patient was seen by triage provider on 02/06 had imaging ordered but left department due to wait time. He states pain has resolved and needs a note to return to work. Currently asymptomatic, does not have PCP needs clearance to return to work. Imaging obtained on 02/06 reviewed and unremarkable. Will provide patient with resources to obtain PCP. Differential Diagnosis Differential Diagnoses: The differential diagnosis associated with the presentation includes lumbar strain, lumbar radiculopathy, vertebral fracture Admission/Observation Consideration of admission/observation: Escalation of care including admission/observation considered Independent Interpretation I performed an independent interpretation of an: Plain X-Ray Interpretation: No vertebral fracture or subluxation noted on imaging from 02/06 Radiology Impression Discussion of test interpretation with radiology: I have reviewed the radiologist's reading. Radiologist Impression: CLINICAL HISTORY: back pain 3 views sacrum and coccyx Comparison: None Findings No acute fractures. No significant degenerative change. No erosions. IMPRESSION: No acute findings This document has been electronically signed by: Shavonne Moran MD on 02/06/2025 19:28:21 CLINICAL HISTORY: back pain 3 views lumbar spine Comparison: None Findings: Normal alignment. No acute fractures or dislocation. No significant degenerative change. IMPRESSION: No acute findings. This document has been electronically signed by: Shavonne Moran MD on 02/06/2025 19:28:15 External Record Review External record reviewed: Inpatient record, Office record and Outpatient record Discharge Plan Discharge Clinical Impression: Lumbar strain Patient Disposition: Home, Self-Care Instructions: Low Back Strain (ED) Additional Instructions: You were evaluated in the emergency department today for clearance to return to work. You are being provided with resources for establishing care with a PCP. Please call the office to set up an appointment. If your pain returns follow up with [facility]. [facility] [address] [place] [address] Please see the information below about our Patient Portal. If you are not yet enrolled in the [facility] Patient Portal, you will receive an enrollment email invitation following your visit to any [facility] care setting. You may also self-enroll in the Patient Portal by visiting our website: [email or web address] The following information is required to access the Patient Portal: - Your [facility] [place] Number - Your personal home email address (must match what is in your electronic medical record, Registration staff can assist with this) - Name - Date of Capabilities of the Patient Portal: - Message some providers - View upcoming appointments - Access your health summary, medical history, and visit history - View current conditions and allergies - View procedure and lab results - View your medications, including guidelines, side effects, and precautions - Complete pre-appointment questionnaires requested by your provider - Ready summary reports of your office visits and procedures To access the Patient Portal Mobile [employer], follow these directions: - Search [employer] in the [employer] Store or Google [employer] Store - Download the [employer]to - Search for [facility] - Enter your login/password Prescriptions: No Action doxycycline monohydrate 100 mg tablet 100 mg PO BID 10 Days Qty: 20 0RF omeprazole 20 mg capsule,delayed release(DR/EC) 20 mg PO BID Qty: 42 1RF Rx Instructions: two weeks twice a day then daily afterwards ondansetron 4 mg tablet,disintegrating 4 mg PO Q8H PRN (Reason: nausea and vomiting) Qty: 20 0RF metoclopramide HCl [Reglan] 10 mg tablet 10 mg PO Q6H PRN (Reason: nausea and vomiting) Qty: 20 0RF potassium chloride 20 mEq packet 20 meq PO DAILY 4 Days Qty: 4 0RF Referrals: [facility] [Provider Group] [facility] [place] [Provider Group] [facility] [place] [Provider Group] Stand Alone Forms: Work/School Release Print Language: Faroese
[2025-02-09 15:29] VITALS: BP 121/77; PULSE 96; RESP 16; TEMP 36.6; O2SAT 98
--- OUTSIDE RECORDS SUMMARY | 2025-02-09 15:32 | XMS_ITS | Clinical Summary ---
Author Organization [facility] Address [address] [place] [address] Care Team Providers Care Package Liner Name Role Phone Unavailable Primary Care Provider Unavailabl e Encounters Date Type Department Care Team Description 01/04/2025 Population Health Risk Score [facility] ([facility] Department [address] [place] [id number] Provider, Population Health Generic from Last 3 [...] patient's age to complete this topic Insurance [facility] C[facility]
== END 2025-02-09 15:30 | disposition home or self-care (01) ==
PROVIDERS: Emergency Provider Emergency Medicine
DX: S39.012A Strain of muscle, fascia and tendon of lower back, initial encounter (principal); X58.XXXA Exposure to other specified factors, initial encounter; Y93.9 Activity, unspecified; Y92.59 Other trade areas as the place of occurrence of the external cause; Y99.0 Civilian activity done for income or pay
CPT/HCPCS: 99282

== ENCOUNTER 2025-04-05 12:01 | Emergency (ER) | payer MEDICAID, SELFPAY ==
[2025-04-05 12:03] VITALS: BP 130/67; PULSE 76; RESP 18; TEMP 36.5; O2SAT 98; BMI 21.4
--- NOTE | 2025-04-05 12:07 | ED.GENADULT ---
HPI - General Adult General Chief complaint: Wound/Laceration Stated complaint: tree fell on arm 1 week scrape doesnt stop bleedin Time Seen by Provider: 04/05/25 12:07 Source: patient, RN notes reviewed and old records reviewed Mode of arrival: ambulatory Limitations: no limitations History of Present Illness ED Provider: Zehra GARCIA narrative: 30-year-old male presents for evaluation of a wound to his left forearm. He reports that last week a tree fell onto his left arm and torso skin off on the way down. He reports mild pain, 4/10. He is concerned because ?every time I take her bandage off there is yellow drainage He is concerned for infection. Denies any fevers or chills No other injuries Related Data Previous Rx's ?Medication ?Instructions ?Recorded metoclopramide HCl 10 mg tablet 10 mg PO Q6H PRN nausea and 12/02/21 (Reglan) vomiting #20 tabs omeprazole 20 mg capsule,delayed 20 mg PO BID #42 caps 12/02/21 release ondansetron 4 mg disintegrating 4 mg PO Q8H PRN nausea and 12/02/21 tablet vomiting #20 tabs potassium chloride 20 mEq oral 20 meq PO DAILY 4 days #4 ea 12/02/21 packet doxycycline monohydrate 100 mg 100 mg PO BID 10 days #20 tabs 10/04/22 tablet Allergies Allergy/AdvReac Type Severity Reaction Status Date / Time seafood Allergy Intermediate Hives Verified 04/05/25 12:07 Review of Systems Integumentary/Breasts: Skin/Breast: Reports wounds PMFSH Past Medical History Medical History Stomach ulcer Depression Social History Social History Alcohol intake: never Patient Tobacco Use Status: Current everyday Tobacco user Substance Use Type: Marijuana Advance Directives: No Advance Directives Information Provided: Yes Do you have a plan to hurt others: No Plan Physical Exam ED Vital Signs: Vital Signs - 24 hr 04/05/25 12:03 04/05/25 12:18 Temperature 97.7 F 97.7 F Pulse Rate 76 76 Respiratory Rate 18 18 Blood Pressure 130/67 130/67 Pulse Oximetry 98 98 Oxygen Delivery Method Room Air Room Air BMI result Body Mass Index 21.4 Const General: healthy appearing, comfortable, no acute distress, alert and awake Nutritional Appearance: well nourished Orientation/consciousness: patient oriented x3 HENMT Head: Yes normocephalic and Yes atraumatic Eyes Eyelids: Yes eyelids normal Conjunctivae: conjunctivae normal Sclerae: sclerae normal Corneas: corneas normal Pupils: Equal, round and reactive pupils present EOM: EOMs intact bilaterally Neck Neck: Yes full ROM Resp Effort & Inspection: normal respiratory effort, able to speak in complete sentences and not labored Skin Other: There is a healing wound to the left forearm, significant granulomatous tissue, no significant erythema, no purulent drainage. No deep lacerations. General skin exam: elasticity normal Neuro General: patient oriented x3 Cranial nerves: Yes Equal, round and reactive pupils present and Yes Bilaterally intact EOM present Cognition (Neuro): normal cognition Extrem Other: Moving all extremities well without any obvious deformities Medical Decision Making Medical Decision Making [place] Narrative: 30-year-old male presents for evaluation of a wound to his left forearm. This appears to be a superficial abrasion in his healing quite well, no deep lacerations, no evidence of infection. No evidence of osseous injury, the patient has good range of motion. We will discharge the patient he will continue with symptomatic care and wound management Differential Diagnosis Differential Diagnoses: The differential diagnosis associated with the presentation includes Laceration Abrasion Cellulitis Contusion Tests considered The following testing was considered but not selected: Consider x-ray left forearm but ultimately declined due to low suspicion for fracture Discharge Plan Discharge Clinical Impression: Abrasion of forearm, left Patient Disposition: Home, Self-Care Instructions: Abrasion (ED) Additional Instructions: Your wound appears to be healing well. You may continue to apply topical antibiotic. Leave the dressing on for the next 2 days. Follow up with your primary doctor, return for new or worsening symptoms. If it is getting infected it will turn bright red, become more swollen and painful Prescriptions: No Action doxycycline monohydrate 100 mg tablet 100 mg PO BID 10 Days Qty: 20 0RF omeprazole 20 mg capsule,delayed release(DR/EC) 20 mg PO BID Qty: 42 1RF Rx Instructions: two weeks twice a day then daily afterwards ondansetron 4 mg tablet,disintegrating 4 mg PO Q8H PRN (Reason: nausea and vomiting) Qty: 20 0RF metoclopramide HCl [Reglan] 10 mg tablet 10 mg PO Q6H PRN (Reason: nausea and vomiting) Qty: 20 0RF potassium chloride 20 mEq packet 20 meq PO DAILY 4 Days Qty: 4 0RF Stand Alone Forms: Work/School Release Interventions: ED Discharge Assessment Last Done: 04/05/25 12:18 Discharge Date/Time: 04/05/25 12:19 Print Language: [place] Islander
[2025-04-05 12:18] VITALS: BP 130/67; PULSE 76; RESP 18; TEMP 36.5; O2SAT 98
== END 2025-04-05 12:19 | disposition home or self-care (01) ==
PROVIDERS: Emergency Provider Emergency Medicine Emergency Medical Services
DX: S50.812A Abrasion of left forearm, initial encounter (principal); W20.8XXA Other cause of strike by thrown, projected or falling object, initial encounter; M79.632 Pain in left forearm; Y93.9 Activity, unspecified; Y92.9 Unspecified place or not applicable; Y99.9 Unspecified external cause status
CPT/HCPCS: 99282

== ENCOUNTER 2025-06-03 08:12 | Emergency (ER) | payer OTHER, MEDICAID, SELFPAY ==
--- NOTE | ~2025-06-03 | XR_ITS ---
CLINICAL HISTORY: back pain 3 views lumbar spine Comparison: CR - XR LUMBAR SPINE 2-3V - 02/06/25 18:47 EDT Findings: Normal vertebral body alignment. No acute fractures or dislocation. No significant degenerative change. IMPRESSION: No acute findings. This document has been electronically signed by: Rafiq Mendez MD on 06/03/2025 09:00:13
[2025-06-03 08:20] VITALS: BP 121/58; PULSE 68; RESP 16; TEMP 36.4; O2SAT 98; BMI 26.6
--- OUTSIDE RECORDS SUMMARY | 2025-06-03 08:30 | XMS_ITS | Clinical Summary ---
Author Organization [employer] Address [address] [place] [address] Care Team Providers Care Hatchery Man Name Role Phone Unavailable Primary Care Provider Unavailabl e Social History Tobacco Use Types Packs/Day Years Used Date Smoking Tobacco: Never Assessed Sex and Gender Information Value Date Recorded Sex Assigned at Male 08/04/2022 10:18 AM EDT Legal Sex Male 10:18 AM EDT Gender Identity Not on file Sexual Orientation Not on file Plan of Treatment Health Maintenance Due Date Last Done Comments Depression Screening 1997 HIV Screening 1997 SDOH Screening 1997 Disability Screening 1997 Alcohol/Substance Use Screening 2009 Tobacco Screening 2009 Family Planning (PISQ) 01/02/2012 HPV Vaccines (1 - Male 3-dos e series) 01/02/2012 Hepatitis C Screening 2015 DTaP/Tdap/Td Vaccines (1 - Tdap) 01/02/2016 Hepatitis B Vaccines (1 of 3 - 19+ 3-dose series) 01/02/2016 COVID-19 Vaccine (1 - 2023-2 5 season) 2024 Influenza Vaccine (#1) 2025 Zoster Vaccines (1 of 2) 2047 RSV [...] patient's age to complete this topic Meningococcal B Vaccine Aged Out No l onger eligible based on patient's age to complete this topic Meningococcal Vaccine Aged Out No deshawn jerod eligible based on patient's age to complete this topic Pneumococcal Vaccine: Pediat rics (0 to 5 Years) and At-Risk Patients (6 to 49) Years Aged Out No longer eligible b ased on patient's age to complete this topic RSV under 20 months Aged Out No longe r eligible based on patient's age to complete this topic Rotavirus Vaccines Aged Out No longer eligible based on patient's age to complete this topic Insurance [facility] C3
--- NOTE | 2025-06-03 09:44 | ED_ITS ---
HPI - Back Pain/Injury General Chief Complaint: Back Pain/Injury Stated Complaint: back pain work related Time Seen by Provider: 06/03/25 09:08 Source: patient, RN notes reviewed and old records reviewed Mode of arrival: ambulatory Limitations: no limitations History of Present Illness ED Provider: Shiv Henderson PA-C HPI Narrative: 30-year-old male with medical history of PUD, depression presents to the ED due to 1 day of lumbar back pain. 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 Patient states he has had episodes of lumbar back strain before and this pain feels similar. Patient denies taking any [id number] analgesics for pain management. Denies saddle paresthesias in urinary/bowel incontinence. Related Data Previous Rx's ?Medication ?Instructions ?Recorded metoclopramide HCl 10 mg tablet 10 mg PO Q6H PRN nause a and 12/02/21 (Reglan) vomiting #20 tabs omeprazole 20 mg capsule,delayed 20 mg PO BID #42 caps 12/02/21 release ondansetron 4 mg disintegrating 4 mg PO Q8H PRN nausea and 12/02/21 tablet vomiting #20 tabs potassium chloride 20 mEq oral 20 meq PO DAILY 4 days #4 ea 12/02/21 packet doxycycline monohydrate 100 mg 100 mg PO BID 10 days # 20 tabs 10/04/22 tablet cyclobenzaprine 5 mg tablet 5 mg PO TID PRN muscle spa sm #15 06/03/25 tabs Allergies Allergy/AdvReac Type Severity Reaction Status Date / Time seafood Allergy Intermediate Hives Verified 06/03/25 08:21 Review of Systems Review of Systems: CONST: Negative for fever, body aches and chills. HENT: Negative for neck pain/stiffness, headache, congestion, sore throat, swelling. EYES: Negative for discharge/pain or vision changes. RESP: Negative for cough/hemoptysis and shortness of breath. CV: Negative chest pain, difficulty breathing, palpitations. ABD: Negative pain, nausea, vomiting. : Negative increase frequency, dysuria, blood in urine or stool. MUSC: Negative for muscle aches, edema. POS lumbar back pain SKIN: Negative rash, lesions/sores. NEURO: Negative headache, dizziness, weakness. Yes all other systems are reviewed and are negative [facility] Past Medical History Attestation statement: The following information was validated with the patient. Source: old records reviewed and nursing notes reviewed Medical History Stomach ulcer Depression Social History Social History Alcohol intake: never Patient Tobacco Use Status: Current everyday Tobacco user Smoked in Last 30 Days: No Use of substances other than those prescribed or required for medical reasons: No Substance Use Type: Marijuana Advance Directives: No Advance Directives Information Provided: No Physical Exam Vital Signs: Vital Signs: Last Vital Signs Temp 0 F L 06/03/25 10:08 Pulse 0 L 06/03/25 10:08 Resp 0 L 06/03/25 10:08 BP 0/0 L 06/03/25 10:08 Pulse Ox 98 06/03/25 08:20 O2 Del Method Room Air 06/03/25 08:20 BMI result Body Mass Index 26.6 GENERAL APPEARANCE: ?AxOx4, generally well-appearing, no acute distress. HEENT: ?NC, AT. MMM. EOMI, clear conjunctiva, oropharynx clear. NECK: ?Supple without lymphadenopathy.? No stiffness or restricted ROM. HEART:? Normal rate and regular rhythm, normal S1/S2, no m/r/g LUNGS:? CTAB, moving air well. No crackles or wheezes are heard. ABDOMEN: ?Soft, nontender, nondistended with good bowel sounds heard. BACK: No CVAT, no obvious deformity. TTP of B/L lumbar paraspinal muscles, no midline spinal tenderness, no bony step offs or anatomical abnormalities palpated or observed. EXTREMITIES: ?Without cyanosis, clubbing or edema. NEUROLOGICAL: ?Grossly nonfocal. Alert and oriented, moving all 4 extremities. Observed to ambulate with normal gait. Skin: ?Warm and dry without any rash. Medications Administered Discontinued Medications Generic Name Dose Route Start Last Admin Trade Name Freq PRN Reason Stop Dose Admin Acetaminophen 975 mg 06/03/25 09:41 06/03/25 09:55 Acetaminophen 325 Mg Tablet PO 06/03/25 09:42 975 mg ONCE ONE Administration Cyclobenzaprine HCl 5 mg 06/03/25 09:41 06/03/25 09:55 Cyclobenzaprine Hcl 5 Mg Tablet PO 06/03/25 09:42 5 mg ONCE ONE Administration Medical Decision Making Medical Decision Making MDM Narrative: 30-year-old male with medical history of PUD, depression presents to the ED due to 1 day of lumbar back pain. 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 This is a very well-appearing 30-year-old male, in no acute distress, nontoxic appearing, patient is sitting in the middle of the stretcher with legs over hanging in a somewhat slouched position very comfortable appearing. On physical exam he has bilateral tenderness of the lumbar paraspinal muscles without any tenderness of the midline spine, no bony step-offs. Full range of motion of the spine in flexion, extension, lateral bending, I had patient ambulate he is ambulating without ataxic gait, or any apprehension, is ambulating comfortably. Patient states he has had episodes of lumbar back strain before and this feels similar, no red flag symptoms such as saddle paresthesias, bowel/bladder incontinence, restricted ROM- less likely cauda equina XR lumbar spine negative for acute spinal injury, no degenerative changes- less likely fracture Patient is being medicated with 975 mg of Tylenol, 5 mg of Flexeril for lumbar back strain Differential Diagnosis Differential Diagnoses: The differential diagnosis associated with the presentation includes Cauda equina Lumbar back strain Lumbar radiculopathy Admission/Observation Consideration of admission/observation: Escalation of care including admission/observation considered Independent Interpretation I performed an independent interpretation of an: Plain X-Ray Interpretation: I personally interpreted the XR of lumbar spine which was negative for any acute fracture, degenerative disease, I agree with the radiologist's interpretation Radiology Impression Discussion of test interpretation with radiology: I have reviewed the ra diologist's reading. Radiologist Impression: XR Lumbar spine Findings: Normal vertebral body alignment. No acute fractures or dislocation. No significant degenerative change. IMPRESSION: No acute findings. This document has been electronically signed by: Rafiq Mendez MD on 06/03/2025 09:00:13 Dictated By: Rafiq Mendez MD Signed By: <Electronically signed by Rafiq Mendez MD in OV> 06/03/25 0900 External Record Review External record reviewed: Inpatient record, Office record and Outpatient record Prescription Management I considered prescription management with: Other (NSAID) I considered Toradol for lumbar back strain however patient with history of PUD, this is a contraindication of NSAIDs. Chronic Conditions Patient?s care impacted by: Other (PUD, depression) Discharge Plan Discharge Clinical Impression: Strain of lumbar region Patient Disposition: Home, Self-Care Instructions: Muscle Strain (DC) Additional Instructions: You were evaluated in the emergency department today for lumbar back pain. Your x-ray was negative for fracture, your physical exam was reassuring as you only had tenderness of the muscles and not the actual spine itself, you were able to ambulate comfortably and had full range of motion of your spine. You were medicated in the department for lumbar back strain with 975 mg of Tylenol, and 5 mg of Flexeril. I will prescribe you a 5 day course of Flexeril for management of back pain. I encourage you to follow up with your primary care provider to ensure your improvement, you may need referral for physical therapy to manage her back pain. Please return to the emergency department if you experience fevers over 100.4?, worsening back pain, difficulty walking, loss of sensation of your legs, episodes of bowel/bladder incontinence, chest pain, shortness of breath, or any new/worsening/concerning symptoms. Prescriptions: New cyclobenzaprine 5 mg tablet 5 mg PO TID PRN (Reason: muscle spasm) Qty: 15 0RF No Action doxycycline monohydrate 100 mg tablet 100 mg PO BID 10 Days Qty: 20 0RF omeprazole 20 mg capsule,delayed release(DR/EC) 20 mg PO BID Qty: 42 1RF Rx Instructions: two weeks twice a day then daily afterwards ondansetron 4 mg tablet,disintegrating 4 mg PO Q8H PRN (Reason: nausea and vomiting) Qty: 20 0RF metoclopramide HCl [Reglan] 10 mg tablet 10 mg PO Q6H PRN (Reason: nausea and vomiting) Qty: 20 0RF potassium chloride 20 mEq packet 20 meq PO DAILY 4 Days Qty: 4 0RF Stand Alone Forms: Work/School Release Interventions: ED Discharge Assessment Last Done: 06/03/25 10:08 Discharge Date/Time: 06/03/25 10:09 Print Language: Egyptian
[2025-06-03 10:08] VITALS: BP 0/0; PULSE 0; RESP 0; TEMP -17.7; TEMP 0
== END 2025-06-03 10:09 | disposition home or self-care (01) ==
PROVIDERS: Emergency Provider Emergency Medicine
DX: S39.012A Strain of muscle, fascia and tendon of lower back, initial encounter (principal); X50.1XXA Overexertion from prolonged static or awkward postures, initial encounter; Y93.9 Activity, unspecified; Y92.9 Unspecified place or not applicable; Y99.0 Civilian activity done for income or pay
CPT/HCPCS: 72100; 99283; 99284

== ENCOUNTER → 2025-06-03 08:25 | Outpatient (BNV) | payer OTHER, SELFPAY | PROVIDERS: Emergency Provider Emergency Medicine; Visit Provider Radiology Diagnostic Radiology | DX: M54.50 Low back pain, unspecified (principal) | CPT/HCPCS: 72100 ==

== ENCOUNTER 2025-07-11 14:27 | Emergency (ER) | payer OTHER, SELFPAY ==
--- NOTE | ~2025-07-11 | CT_ITS ---
EXAMINATION: CT HEAD WITHOUT CONTRAST CLINICAL INFORMATION: A desk fell on head. Head trauma. COMPARISON: None available. TECHNIQUE: Contiguous axial imaging was performed from the skull base to vertex without intravenous administration of contrast. This CT examination was performed using dose optimization techniques as appropriate, variously including the following: *Automated exposure control *Adjustment of mA and/or kV according to patient size (this includes techniques or standardized protocols for targeted exams where dose is matched to indication/reason for exam; i.e. extremities or head) *Use of iterative reconstruction technique FINDINGS: There is no evidence of intracranial hemorrhage or extra-axial fluid collection. There is no mass effect, or edema. No CT evidence of acute territorial infarct. Ventricles, sulci, and cisterns are normal in size and configuration for patient age. No hydrocephalus. No midline shift. Negative hyperdense MCA sign. Negative insular ribbon sign. Patchy periventricular and deep white matter hypoattenuation is consistent with mild to moderate small vessel ischemic changes. Normal pituitary. Mild atheromatous calcification of the bilateral carotid siphons and V4 segments vertebral arteries bilaterally. Globes and orbital contents image normally. There is a right lens replacement. No extracranial soft tissue abnormalities. The paranasal sinuses, mastoid air cells, and tympanic cavities are normally aerated. No suspicious bony abnormalities. There are no acute fractures evident. CT/CT head/brain wo IV con IMPRESSION: No acute intracranial abnormality. No acute fracture evident. Electronically signed by: Marvin Richmond MD 07/11/2025 04:11 PM EDT
--- NOTE | ~2025-07-11 | CT_ITS ---
EXAMINATION: CT CERVICAL SPINE WITHOUT CONTRAST CLINICAL INFORMATION: desk fell on head COMPARISON: None available. TECHNIQUE: Axial imaging was performed from the base of the skull through T2 without IV contrast. Coronal and sagittal reformatted images were generated from the original axial data set. ALARA: The examination used one or more of the following radiation dose reduction techniques: Automated exposure control, iterative reconstruction, and/or adjustment of mA and/or KV. FINDINGS: There is reversal cervical lordosis. There is no prevertebral soft tissue edema. There is mild disc space narrowing at C5-6. There is disc bulge at C6-7. No fracture lines are evident. CT/CT cervical spine wo IV con IMPRESSION: There is mild reversal of cervical lordosis. This can be related to degenerative changes, positioning, muscle spasm, or posterior soft tissue injury. No acute fracture is demonstrated. Electronically signed by: Eugene Rodriguez MD 07/11/2025 04:12 PM EDT
[2025-07-11 14:32] VITALS: BP 121/66; PULSE 77; PULSE 79; RESP 18; RESP 19; TEMP 36.9; O2SAT 98; BMI 21.5
--- NOTE | 2025-07-11 14:32 | ED.HEATRA ---
HPI - Head Injury General Chief complaint: Head Injury Stated complaint: DESK FELL ON FOREHEAD,-LOC,DIZZY,NECK/HEAD PAIN Time Seen by Provider: 07/11/25 14:30 Source: patient, EMS, RN notes reviewed and old records reviewed Mode of arrival: EMS History of Present Illness ED Provider: Antonette Isidro PA-C HPI Narrative: 30-year-old male with no significant past medical history presenting to the ED via EMS complaining of headache, photophobia, and left-sided neck pain s/p desk fell off moving truck on top of head [employer]. States desk was about 2-3 feet above patient's head. Admits to losing vision/backing out for a couple of seconds without fall or loss of postural tone. Denies LOC or anticoagulation use. Denies injury to other area, blurry vision at/visual changes at present, numbness/tingling, nausea/vomiting Related Data Previous Rx's ?Medication ?Instructions ?Recorded metoclopramide HCl 10 mg tablet 10 mg PO Q6H PRN nausea and 12/02/21 (Reglan) vomiting #20 tabs omeprazole 20 mg capsule,delayed 20 mg PO BID #42 caps 12/02/21 release ondansetron 4 mg disintegrating 4 mg PO Q8H PRN nausea and 12/02/21 tablet vomiting #20 tabs potassium chloride 20 mEq oral 20 meq PO DAILY 4 days #4 ea 12/02/21 packet doxycycline monohydrate 100 mg 100 mg PO BID 10 days #20 tabs 10/04/22 tablet cyclobenzaprine 5 mg tablet 5 mg PO TID PRN muscle spasm #15 06/03/25 tabs Allergies Allergy/AdvReac Type Severity Reaction Status Date / Time seafood Allergy Intermediate Hives Verified 07/11/25 14:37 Review of Systems Review of Systems: Yes all other systems are reviewed and are negative Constitutional: Constitutional: Reports as per HPI Eyes: Eyes: Reports photophobia Neurologic: Denies Abnormal speech present [facility] Past Medical History Attestation statement: The following information was validated with the patient. Source: old records reviewed Medical History Stomach ulcer Depression Social History Social History Alcohol intake: never Patient Tobacco Use Status: Current everyday Tobacco user Substance Use Type: Marijuana Advance Directives: No Advance Directives Information Provided: No Do you have a plan to hurt others: No Plan Physical Exam Vital Signs: Vital Signs: Last Vital Signs Temp 98.5 F 07/11/25 14:32 Pulse 79 07/11/25 14:32 Resp 19 07/11/25 14:32 BP 121/66 07/11/25 14:32 Pulse Ox 98 07/11/25 14:32 O2 Del Method Room Air 07/11/25 14:32 BMI result Body Mass Index 21.5 Const: General: cooperative, healthy appearing and no acute distress Orientation/consciousness: patient oriented x3 Limitations: no limitations HEENT: Other: + hematoma noted to forehead with overlying abrasion. Tender to palpation. No palpable step-off. Head: No Ta's sign and No raccoon eyes Ears: hearing grossly normal bilaterally General nose exam: Normal external nose present Face and sinus: Yes normal facial exam Mouth: Normal oral and palatal mucosa present Throat: Yes posterior oropharynx normal and Yes uvula midline Eyes: General: appearance normal, both eyes and all related structures Pupils: Equal, round and reactive pupils present EOM: EOMs intact bilaterally Direct Ophthalmoscopy: photophobia Neck: Other: C-collar in place. No midline spinous tenderness. Mild left-sided paraspinal/trapezius muscle reproducible tenderness Neck: Yes normal visual inspection and Yes no meningeal signs Resp: Effort & Inspection: normal respiratory effort and no respiratory distress Cardio: Rate: regular rate GI: Inspection: Yes normal to inspection Palpation (GI): Soft to palpation, nontender, no guarding and not rigid Back/Spine/Pelvis: Other: No midline cervical/thoracic/lumbar spinous tenderness/step-off or deformity Skin: Rashes: no rashes Wounds: no wounds Neuro: General: patient oriented x3, tone normal, moves all extremities, no meningeal signs, no focal motor deficits and CN's II-XI intact bilaterally Cranial nerves: Yes CN's II-XII intact bilaterally and Yes Equal, round and reactive pupils present Cognition (Neuro): normal cognition Speech: No Abnormal speech present Motor exam (neuro): 5/5 motor strength present throughout Extrem: General: Yes normal to inspection Course Course Course Narrative: 1619--CT head/brain wo IV con IMPRESSION: No acute intracranial abnormality. No acute fracture evident. CT cervical spine wo IV con IMPRESSION: There is mild reversal of cervical lordosis. This can be related to degenerative changes, positioning, muscle spasm, or posterior soft tissue injury. No acute fracture is demonstrated. Results discussed with patient including worrisome signs and symptoms and strict return precautions, and when to return to the emergency department. They verbalized understanding and feel safe for discharge at this time. Medications Administered Discontinued Medications Generic Name Dose Route Start Last Admin Trade Name Freq PRN Reason Stop Dose Admin Acetaminophen/Butalbital/Caffeine 1 tab 07/11/25 14:38 07/11/25 15:08 Butalb/Acetamin/Caff 50/325/40 Tablet PO 07/11/25 14:39 1 tab ONCE ONE Administration Medical Decision Making Medical Decision Making [facility] Narrative: 30-year-old male with no significant past medical history presenting to the ED via EMS complaining of headache, photophobia, and left-sided neck pain s/p desk fell off moving truck on top of head [employer]. S on exam vital signs stable, NAD, nontoxic appearing, physical exam as noted above. Concern for concussion vs fractures. Rule out ICH. Low suspicion for SAH. Plan: Head/C-spine CT, pain management, re-evaluate Please refer to course for remaining clinical decision making, interpretation of labs/imaging results, and discussions with consultants and/or family members. Differential Diagnosis Differential Diagnoses: The differential diagnosis associated with the presentation includes As above Admission/Observation Consideration of admission/observation: Escalation of care including admission/observation considered Lab Data [facility] Lab Attestation statement: I reviewed the patient's lab results. Independent Interpretation I performed an independent interpretation of an: CT Scan Radiology Impression Discussion of test interpretation with radiology: I have reviewed the radiologist's reading. Independent Historian Clinical information obtained from an independent historian. History obtained from or confirmed by: EMS External Record Review External record reviewed: Inpatient record, Office record, Outpatient record, Prior outpatient labs, Prior outpatient radiology, Primary care record and Outside ED record Tests considered The following testing was considered but not selected: As above Prescription Management I considered prescription management with: Pain Medication Social Determinants Patient?s care significantly limited by Social Determinants of Health including: Low income and Other Social Determinant of Health Discharge Plan Discharge Clinical Impression: Closed head injury Patient Disposition: Home, Self-Care Instructions: Head Injury (DC) Additional Instructions: The CAT scan of your head and neck do not show any acute findings. You likely have a concussion Take Tylenol and ibuprofen at home as needed for headache You may apply topical antibiotic ointment to the abrasion on your forehead If you develop constant or worsening/unremitting headache, nausea, vomiting, vision change or loss or weakness return to the ED immediately It can be normal for you to have headaches, nausea, some lightheadedness however this is persistent or worsening/unbearable return to the ED immediately Please have close follow up with her doctor Prescriptions: No Action doxycycline monohydrate 100 mg tablet 100 mg PO BID 10 Days Qty: 20 0RF omeprazole 20 mg capsule,delayed release(DR/EC) 20 mg PO BID Qty: 42 1RF Rx Instructions: two weeks twice a day then daily afterwards ondansetron 4 mg tablet,disintegrating 4 mg PO Q8H PRN (Reason: nausea and vomiting) Qty: 20 0RF metoclopramide HCl [Reglan] 10 mg tablet 10 mg PO Q6H PRN (Reason: nausea and vomiting) Qty: 20 0RF potassium chloride 20 mEq packet 20 meq PO DAILY 4 Days Qty: 4 0RF cyclobenzaprine 5 mg tablet 5 mg PO TID PRN (Reason: muscle spasm) Qty: 15 0RF Referrals: [facility] [Outside] - 1 week Stand Alone Forms: Work/School Release Print Language: Estonian
[2025-07-11] MEDS: Butalb/Acetamin/Caff 50/325/40 TABLET 1 TAB PO (15:08)
--- OUTSIDE RECORDS SUMMARY | 2025-07-11 18:46 | XMS_ITS | Clinical Summary ---
Author Organization [employer] Address [address] [place] [address] Care Team Providers Care Salesperson Hearing Aids Name Role Phone Unavailable Primary Care Provider [...] COVID-19 Vaccine (1 - 2023-2 5 season) 2025 Influenza Vaccine (#1) 2025 Zoster Vaccines (1 [...] patient's age to complete this topic Insurance [facility] C3
== END 2025-07-11 17:30 | disposition home or self-care (01) ==
PROVIDERS: Emergency Provider Emergency Medicine
DX: S09.90XA Unspecified injury of head, initial encounter (principal); M54.2 Cervicalgia; W20.8XXA Other cause of strike by thrown, projected or falling object, initial encounter; Y93.9 Activity, unspecified; Y92.9 Unspecified place or not applicable; Y99.0 Civilian activity done for income or pay
CPT/HCPCS: 70450; 72125; 99283; 99284

== ENCOUNTER → 2025-07-11 14:38 | Outpatient (BNV) | payer OTHER, SELFPAY | PROVIDERS: Emergency Provider Emergency Medicine; Visit Provider Radiology Diagnostic Radiology | DX: M54.2 Cervicalgia (principal); R51.9 Headache, unspecified | CPT/HCPCS: 70450; 72125 ==